=== PATIENT | male | born 1950 | race Caucasian/White ===

== ENCOUNTER 2021-09-21 11:50 | Outpatient (CLI) | payer MEDICARE ==
[2021-09-22 11:03] LABS: SARS-CoV-2 PCR by NAA Not Detected (NotDetected)
== END 2021-09-21 11:51 | disposition home or self-care (01) ==
LOC: CSHLAB 11:50
PROVIDERS: ATTEND Surgery
DX: Z01.818 Encounter for other preprocedural examination (principal); Z20.822 Contact with and (suspected) exposure to COVID-19; K80.20 Calculus of gallbladder without cholecystitis without obstruction
CPT/HCPCS: 93005; 93010; U0003; U0005

== ENCOUNTER 2021-09-24 07:41 | Day surgery (SDC) | payer MEDICARE ==
[2021-09-22 14:58] VITALS: BMI 29.8
[2021-09-24] MEDS ORDERED: Lidocaine 1% MPF 2 ML VIAL ONE (09:10)
[2021-09-24] MEDS ORDERED: EPINEPHrine 1 MG/ML AMP ONE (09:36)
[2021-09-24] MEDS ORDERED: Bupivacaine PF 0.5% 30 ML VIAL ONE (09:37)
[2021-09-24] MEDS ORDERED: PROPOFOL 20 ML ONE (10:56)
[2021-09-24] MEDS ORDERED: Fentanyl 100 MCG/2 ML VIAL ONE ×3 (10:57→13:37)
[2021-09-24] MEDS ORDERED: Glycopyrrolate 0.2 MG/ML 5 ML SYRINGE ONE (11:46)
[2021-09-24] MEDS ORDERED: ePHEDrine Sulfate 50 MG/10 ML VIAL ONE (11:47)
[2021-09-24] MEDS ORDERED: Ketorolac Tromethamine 30 MG/ML VIAL ONE (12:29)
[2021-09-24] MEDS ORDERED: Ondansetron PF 4 MG/2 ML Vial ONE (12:29)
[2021-09-24] MEDS ORDERED: Dexamethasone 4 mg/ml Vial ONE (12:29)
[2021-09-24] MEDS ORDERED: HYDROcodone/Acetaminophen 5/325 mg Tablet PO PRN (13:52)
== END 2021-09-24 13:50 | disposition home or self-care (01) ==
LOC: CSHSDC 07:41
PROVIDERS: ATTEND Surgery
PROC: 0FT44ZZ Resection of Gallbladder, Percutaneous Endoscopic Approach (ICD-10-PCS; principal; 2021-09-24)
DX: K80.10 Calculus of gallbladder with chronic cholecystitis without obstruction (principal); Z79.899 Other long term (current) drug therapy
CPT/HCPCS: 47562; C1776; 88304; J0171; J0690; J1100; J1885; J2405; J2704; J3010; S0020